=== PATIENT | female | born 1985 | race American Indian/Alaskan Native ===

== ENCOUNTER 2022-05-04 12:44 | Emergency (ER) | payer OTHER ==
[2022-05-04 13:46] VITALS: BP 144/88
--- NOTE | 2022-05-04 16:51 | Ultrasound Report ---
OB ultrasound Pelvic ultrasound INDICATION: Vaginal bleeding FINDINGS: Uterus measures 6.8 x 3.5 x 3.9 cm. Endometrial measures 7 mm. Bilateral ovaries are normal in size and appearance with normal arterial and venous flow. No intrauterine this time. Le ft adnexal cyst measures 2.4 cm. IMPRESSION: Left adnexal cyst measures 2.1 cm. No intrauterine is seen. Correlation with quantitative h CG recommended. Signer Name: Tu Hanley MD Signed: 05/04/2022 4:47 PM Workstation Name: [id number]
[2022-05-04 17:07] LABS: Hematocrit 42.1 % (30.3-42.9); Hemoglobin 14.6 gm/dl (10.1-14.3); Mean Corpuscular HGB Conc 35 % (30-34); Mean Corpuscular Volume 92 fl (79-97); Platelet Count 238 K/mm3 (140-440); Red Cell Distribution Width 13.7 % (13.2-15.2)
[2022-05-04 17:30] LABS: Alanine Aminotransferase 23 units/L (7-56); Albumin 4.8 g/dL (3.9-5); Blood Urea Nitrogen 9 mg/dL (7-17); Calcium 9.3 mg/dL (8.4-10.2); Hemolysis Index 4
[2022-05-04 17:31] LABS: BUN/Creatinine Ratio 15
[2022-05-04 18:32] LABS: Bacteria,Urine 1+ /HPF (Negative); Hyaline Casts,Urine 1 /LPF
[2022-05-04 18:38] LABS: Color,Urine Yellow (Yellow)
== END 2022-05-05 02:00 | disposition left against medical advice (07) ==
LOC: ED 12:44
DX: R58 Hemorrhage, not elsewhere classified (principal); Z53.21 Procedure and treatment not carried out due to patient leaving prior to being seen by health care provider
CPT/HCPCS: 36415; 76801; 76830; 76856; 80053; 81001; 84702; 85027; 86850; 86900; 86901